=== PATIENT | female | born 1950 | race Caucasian/White ===

== ENCOUNTER 2016-12-08 07:17 | Emergency (ER) | payer OTHER ==
[2016-12-08 07:33] VITALS: BP 136/54; PULSE 78; RESP 16; TEMP 97.8; O2SAT 98
--- NOTE | 2016-12-08 08:06 | UCPHY ---
H & P Time Seen by Provider: 12/08/16 07:40 Patient Type: Established HPI/ROS: This patient reports a cough that she has had intermittently since August but it has been steady for the past 4 days with increasing frequency. She has a dry hacking cough. She notes no exacerbating or alleviating factors. She has slight pain when she coughs her chest that feels like type bronchitis her. She reports mild nasal congestion and sore throat associated with her symptoms and she has also had the symptoms intermittently since August. While her symptoms of improved at times of never entirely resolved. ROS: She reports no high fevers or chills. No other constitutional symptoms. HEENT: No ear pain. No other complaints. No headache. Pulmonary: No respiratory distress. No pleuritic pain. Cardiac: She has no chest pain at rest. No lower extremity swelling. No heart palpitations. 7 point ROS is otherwise negative. Past Medical/Surgical History: Otherwise healthy Smoking Status: Former smoker Physical Exam: General Appearance: Alert, no distress. Eyes: Pupils equal and round no pallor or injection. ENT, Mouth: Mucous membranes moist. Ears: Clear bilaterally nose: Clear discharge. Respiratory: Mild expiratory wheeze. No rhonchi. No rales. No respiratory distress. Cardiovascular: Regular rate and rhythm. No murmur gallop or rub Gastrointestinal: Abdomen is soft and nontender, no masses, bowel sounds normal. Neurological: Alert with no focal deficits. Skin: Warm and dry, no rashes. Musculoskeletal: Neck is supple nontender. Extremities are symmetrical, full range of motion. Psychiatric: Mood and affect are normal. DIFFERENTIAL DIAGNOSIS: After history and physical exam differential diagnosis was considered for pertussis, bronchitis- viral versus bacterial, URI with cough with RAD Constitutional: Initial Vital Signs Temperature (C) 36.6 C 12/08/16 07:31 Heart Rate 78 12/08/16 07:31 Respiratory Rate 16 12/08/16 07:31 Blood Pressure 136/54 H 12/08/16 07:31 O2 Sat (%) 98 12/08/16 07:31 O2 Delivery Mode Room Air Allergies/Adverse Reactions: codeine [Codeine] Allergy (Verified 12/08/16 07:33) Penicillins Allergy (Verified 12/08/16 07:33) Sulfa (Sulfonamide Antibiotics) Allergy (Verified 12/08/16 07:33) Home Medications: Medication Instructions Recorded Albuterol Hfa Anes Only [Proair 2 puffs IH Q4 PRN #1 mdi 12/08/16 Hfa Icu (*)] Azithromycin [Zithromax] 250 mg PO DAILY #6 tab 12/08/16 Prozac 10 MG (*) 12/08/16 MDM/Departure - [facility] ED Course/Re-evaluation: The patient appears clinically well without clinical evidence of lower respiratory infection or sepsis. Pertussis is a consideration given the duration of her symptoms. - Depart Disposition: Home, Routine, Self-Care Clinical Impression: Acute bronchitis Qualifiers: Bronchitis organism: unspecified organism Qualified Code(s): J20.9 - Acute bronchitis, unspecified Condition: Good Instructions: Acute Bronchitis (ED) Additional Instructions: Diagnosis: Acute bronchitis Plan: Humidifier Zithromax antibiotic Albuterol inhaler with spacer for cough, wheeze or shortness of breath You are allergic to codeine, so I did not prescribe guaifenesin with codeine that we had talked about. Return for any significant worsening despite treatment plan Prescriptions: Albuterol Hfa Anes Only [Proair Hfa Icu (*)] 2 puffs IH Q4 PRN #1 mdi PRN Reason: Wheezing Azithromycin [Zithromax] 250 mg PO DAILY #6 tab Referrals: Adams Strange MD [Primary Care Provider] - As per Instructions - PQRS PQRS Measurement: 134: Depression screening and followup, PRIME MD-PHQ2 (12 years and older) Over the last 2 weeks, how often have you been bothered by any of the following problems? 1. Feeling down, depressed, or hopeless? 2. Little interest or pleasure in doing things? Patient answered no to both 1 and 2 130: Documentation of medications. Reviewed all patient medications, doses, route and frequency. 226: Do you smoke? No 47: 65 and older: Advanced care planning. Patient designates surrogate decision maker as spouse. 51: 18 years old and older with diagnosis of COPD, spirometry performance. NA 52: 18 years old and older with COPD and symptoms of COPD or FEV1<60% predicted prescribed a B Agonist. NA
== END 2016-12-08 08:24 | disposition home or self-care (01) ==
LOC: CED 07:17
DX: J20.9 Acute bronchitis, unspecified (principal); Z87.891 Personal history of nicotine dependence
CPT/HCPCS: 99214-PO; G0463-PO

== ENCOUNTER → 2017-09-10 | Outpatient (CLI) | payer OTHER | LOC: FIMAGING 08:35 | PROVIDERS: ATTEND Family Medicine Sports Medicine | DX: Z12.31 Encounter for screening mammogram for malignant neoplasm of breast (principal) | CPT/HCPCS: G0202 ==

== ENCOUNTER → 2018-02-11 | Outpatient (CLI) | payer OTHER | LOC: FIMAGING 12:13 | PROVIDERS: ATTEND Family Medicine Sports Medicine | DX: Z13.820 Encounter for screening for osteoporosis (principal); M85.89 Other specified disorders of bone density and structure, multiple sites; F41.9 Anxiety disorder, unspecified; R00.2 Palpitations; Z78.0 Asymptomatic menopausal state; Z79.890 Hormone replacement therapy ==

== ENCOUNTER → 2018-09-27 | Outpatient (CLI) | payer OTHER | LOC: FIMAGING 15:05 | PROVIDERS: ATTEND Family Medicine Sports Medicine | DX: Z12.31 Encounter for screening mammogram for malignant neoplasm of breast (principal) ==